=== PATIENT | male | born 1955 | race Caucasian/White ===

== ENCOUNTER 2016-12-07 19:01 | Inpatient (IN) | payer OTHER ==
[~2016-12-07] VITALS: Ht 172.7 cm; Wt 99.2 kg
[~2016-12-07 19:01] MED LIST: ASPI-650 PO; ATOR40TA PO; ATOR40TA78 PO; CLON0.1T PO; FLUC50TA3 PO; LOSA25TA5 PO; MONT10TA6 PO; MONT10TA9 PO; OMEP20TA62 PO; SULF1TAB24 PO; TRAM50TA2 PO
[2016-12-07 19:32] LABS: HEMATOCRIT 43.6 % (39.2-51.8); HEMOGLOBIN 15.2 g/dL (13.7-18.0); WHITE BLOOD COUNT 11.5 x10^3/uL (3.4-10)
[2016-12-07 19:42] LABS: BLOOD UREA NITROGEN 25 mg/dL (7-18)
[2016-12-07 19:48] LABS: IS PT STATUS REG ER OR PRE ER? YES
[2016-12-07] MEDS ORDERED: MAALOX/HYOSCYAMINE/LIDOCAINE 45 ML BTL ONE (19:51)
[2016-12-07] MEDS ORDERED: MAALOX/HYOSCYAMINE/LIDOCAINE 45 ML BTL PO ONE (20:00)
[2016-12-07] MEDS ORDERED: NITROGLYCERIN SINGLE TAB 0.4 MG SL ONE (20:27)
[2016-12-07] MEDS ORDERED: MORPHINE SULFATE 4 MG/ML, 1ML IVPush PRN ×2 (20:30→22:00)
[2016-12-07] MEDS ORDERED: NITROGLYCERIN SINGLE TAB 0.4 MG SL PRN (20:30)
[2016-12-07] MEDS ORDERED: MORPHINE SULFATE 4 MG/ML, 1ML ONE (21:23)
[2016-12-07] MEDS ORDERED: SODIUM CHLORIDE 0.9% 1,000ML IVBOLUS ONE (22:00)
[2016-12-07] MEDS ORDERED: SODIUM CHLORIDE FLUSH 10ML SYR IVF ONE (22:00)
[2016-12-07] MEDS ORDERED: hydrALAzine 20 MG/ML, 1ML IVPush PRN (22:30)
[2016-12-07] MEDS ORDERED: ONDANSETRON 2MG/ML, 2ML IVPush PRN (22:30)
[2016-12-07] MEDS ORDERED: morphine SULFATE 10 MG/ML, 1ML IVPush PRN (22:30)
[2016-12-07] MEDS ORDERED: NITROGLYCERIN 0.4 MG BOTTLE (25 TABS) SL PRN (23:00)
[2016-12-07] MEDS ORDERED: NITROGLYCERIN 0.4 MG/SPRAY SL PRN (23:00)
[2016-12-07 23:33] VITALS: BP 146/87
[2016-12-07] MEDS: NS + 20MEQ KCL 1,000 ML IV SCH (23:55)
[2016-12-07] MEDS: ENOXAPARIN 40 MG/0.4 ML SQ SCH (23:55)
[2016-12-07] MEDS: SODIUM CHLORIDE FLUSH 10ML SYR IVF SCH (23:56)
[2016-12-08 01:36] LABS: IS PT STATUS REG ER OR PRE ER? NO
[2016-12-08 02:00] VITALS: BP 124/78
[2016-12-08 05:42] LABS: IS PT STATUS REG ER OR PRE ER? NO
[2016-12-08 05:46] LABS: ASPARTATE AMINO TRANSFERASE 22 U/L (15-37); BLOOD UREA NITROGEN 23 mg/dL (7-18)
[2016-12-08 06:07] LABS: HEMATOCRIT 40.5 % (39.2-51.8); WHITE BLOOD COUNT 9.1 x10^3/uL (3.4-10)
[2016-12-08] MEDS ORDERED: PNEUMOCOCCAL 23 VACCINE IM-VACC ONE (06:30)
[2016-12-08 08:00] VITALS: BP 138/80
[2016-12-08] MEDS: PANTOPRAZOLE 40 MG IV IVPush SCH (08:17)
[2016-12-08] MEDS: NS + 20MEQ KCL 1,000 ML IV SCH (08:17)
[2016-12-08] MEDS: SODIUM CHLORIDE FLUSH 10ML SYR IVF SCH ×2 (08:18→21:59)
[2016-12-08] MEDS ORDERED: LORazepam 1MG TABLET PO ONE (10:00)
[2016-12-08 14:00] VITALS: BP 151/81
[2016-12-08] MEDS: SODIUM CHLORIDE 0.9% 1,000 ML IV SCH (17:35)
[2016-12-08 20:00] VITALS: BP 149/82
[2016-12-08] MEDS ORDERED: ATORVASTATIN 40 MG TABLET PO SCH (21:00)
[2016-12-08] MEDS: ENOXAPARIN 40 MG/0.4 ML SQ SCH (22:00)
[2016-12-08] MEDS: LOSARTAN 50MG TABLET PO SCH (22:00)
[2016-12-09 02:46] VITALS: BP 148/73
[2016-12-09] MEDS: SODIUM CHLORIDE 0.9% 1,000 ML IV SCH ×2 (05:42→16:14)
[2016-12-09 06:11] LABS: ASPARTATE AMINO TRANSFERASE 44 U/L (15-37); BLOOD UREA NITROGEN 14 mg/dL (7-18)
[2016-12-09] MEDS ORDERED: REGADENOSON 0.4 MG/5 ML SYRINGE ONE (08:32)
[2016-12-09] MEDS: SODIUM CHLORIDE FLUSH 10ML SYR IVF SCH ×2 (08:53→21:01)
[2016-12-09] MEDS: PANTOPRAZOLE 40 MG IV IVPush SCH (08:53)
[2016-12-09 09:00] VITALS: BP 162/98
[2016-12-09 09:25] LABS: ASPARTATE AMINO TRANSFERASE 47 U/L (15-37)
[2016-12-09 15:10] VITALS: BP 147/78
[2016-12-09 20:56] VITALS: BP 165/84
[2016-12-09] MEDS: LOSARTAN 50MG TABLET PO SCH (21:00)
[2016-12-09] MEDS: ENOXAPARIN 40 MG/0.4 ML SQ SCH (21:00)
[2016-12-10 01:57] VITALS: BP 153/90
[2016-12-10] MEDS: SODIUM CHLORIDE 0.9% 1,000 ML IV SCH (06:10)
[2016-12-10 06:56] LABS: ASPARTATE AMINO TRANSFERASE 26 U/L (15-37); BLOOD UREA NITROGEN 12 mg/dL (7-18)
[2016-12-10 08:05] VITALS: BP 142/79
[2016-12-10] MEDS: PANTOPRAZOLE 40 MG IV IVPush SCH (08:56)
[2016-12-10] MEDS: SODIUM CHLORIDE FLUSH 10ML SYR IVF SCH (08:59)
[2016-12-10] MEDS ORDERED: AMLODIPINE 5 MG TABLET PO SCH (09:00)
[2016-12-10] MEDS ORDERED: FENTANYL PF 100 MCG/2ML ONE (12:24)
[2016-12-10] MEDS ORDERED: MIDAZOLAM 1 MG/ML, 5ML ONE (12:24)
[2016-12-10] MEDS ORDERED: TICAGRELOR 90 MG TABLET ONE (12:25)
[2016-12-10] MEDS ORDERED: HEPARIN 1,000 UNITS/ML, 10ML ONE (12:25)
[2016-12-10] MEDS ORDERED: BIVALIRUDIN 250 MG ONE (12:25)
[2016-12-10] MEDS ORDERED: LIDOCAINE 2%, 20ML ONE (12:25)
[2016-12-10] MEDS ORDERED: VERAPAMIL 2.5 MG/ML, 2ML ONE (12:25)
[2016-12-10 14:59] VITALS: BP 161/91
[2016-12-10] MEDS ORDERED: AMLO5TAB2 PO (15:18)
== END 2016-12-10 18:47 | disposition home or self-care (01) | DRG 286 ==
LOC: ED 21:36 → EDIP 21:59 → 5SO 23:26
PROVIDERS: ADMIT Internal Medicine; ATTEND Hospitalist
PROC: 4A023N7 Measurement of Cardiac Sampling and Pressure, Left Heart, Percutaneous Approach (ICD-10-PCS; principal; 2016-12-07)
PROC: B2111ZZ Fluoroscopy of Multiple Coronary Arteries using Low Osmolar Contrast (ICD-10-PCS; 2016-12-07)
PROC: B2151ZZ Fluoroscopy of Left Heart using Low Osmolar Contrast (ICD-10-PCS; 2016-12-07)
DX: I25.10 Atherosclerotic heart disease of native coronary artery without angina pectoris (principal); K85.90 Acute pancreatitis without necrosis or infection, unspecified; I10 Essential (primary) hypertension; E78.00 Pure hypercholesterolemia, unspecified; E78.5 Hyperlipidemia, unspecified; J45.909 Unspecified asthma, uncomplicated; K21.9 Gastro-esophageal reflux disease without esophagitis; K80.20 Calculus of gallbladder without cholecystitis without obstruction; Z87.891 Personal history of nicotine dependence; Z90.49 Acquired absence of other specified parts of digestive tract; Z88.8 Allergy status to other drugs, medicaments and biological substances
CPT/HCPCS: 36415; 71010; 74181; 76700; 78452; 80048; 80053; 80061; 80076; 82040; 83690; 84450; 84460; 84484; 85025; 90732; 93005; 93017; 93458; 96361; 96374; 99156; C1769; C1894; J0583; J1644; J1650; J2250; J2785; J3010; J3480; J3490; A9502; C9113; C9898; J2270; J7030; Q9967

== ENCOUNTER → 2017-01-04 | Outpatient (CLI) | payer OTHER ==
[~2017-01-04] MED LIST changes: +AMLO5TAB2 PO; +LOSA100T6 PO
== END ==
LOC: STAR 08:29
PROVIDERS: ATTEND Podiatrist Foot & Ankle Surgery
DX: Z02.9 Encounter for administrative examinations, unspecified (principal)

== ENCOUNTER 2017-01-16 13:04 | Day surgery (SDC) | payer OTHER ==
[~2017-01-16] VITALS: Ht 172.7 cm; Wt 96.0 kg
[2017-01-16] MEDS ORDERED: LACTATED RINGERS 1,000 ML IV SCH ×2 (13:33→20:00)
[2017-01-16 13:51] VITALS: BP 166/81
[2017-01-16] MEDS ORDERED: BUPIVACAINE/PF 0.5% ONE (14:48)
[2017-01-16] MEDS ORDERED: EPINEPHRINE 1 MG/ML, 1ML ONE (14:48)
[2017-01-16] MEDS ORDERED: LIDOCAINE/PF 1%, 30ML ONE (14:48)
[2017-01-16] MEDS ORDERED: MIDAZOLAM 1 MG/ML, 2ML ONE ×2 (15:24→15:30)
[2017-01-16] MEDS ORDERED: SCOPOLAMINE 1MG PATCH TD ONE ×2 (15:24→15:30)
[2017-01-16] MEDS ORDERED: FENTANYL PF 100 MCG/2ML ONE ×2 (15:24→17:26)
[2017-01-16] MEDS ORDERED: PROPOFOL 50 ML ONE (15:30)
[2017-01-16] MEDS ORDERED: PROPOFOL 10 MG/ML, 20ML ONE (15:30)
[2017-01-16] MEDS ORDERED: KETAMINE 10 MG/ML, 20ML ONE (15:30)
[2017-01-16] MEDS ORDERED: CEFAZOLIN 1,000 MG ONE ×2 (15:35)
[2017-01-16] MEDS ORDERED: DEXAMETHASONE 4 MG/ML, 1ML ONE ×2 (15:36)
[2017-01-16] MEDS ORDERED: ONDANSETRON 2MG/ML, 2ML ONE ×2 (17:03)
[2017-01-16] MEDS ORDERED: KETOROLAC 30 MG/1 ML ONE (17:03)
[2017-01-16] MEDS ORDERED: PROMETHAZINE 25 MG/ML, 1ML IV PRN (18:00)
[2017-01-16] MEDS ORDERED: ALBUTEROL SULFATE 2.5 MG/3 ML NPPB PRN (18:00)
[2017-01-16] MEDS ORDERED: ONDANSETRON 2MG/ML, 2ML IVPush PRN ×2 (18:00→20:00)
[2017-01-16] MEDS ORDERED: LABETALOL 5MG/ML, 20ML IV PRN (18:00)
[2017-01-16] MEDS ORDERED: OXYcodone 5 MG/5 ML ORAL.SOL UDC PO PRN (18:00)
[2017-01-16] MEDS ORDERED: HYDROmorphone 1 MG/ML, 1ML IV PRN (18:00)
[2017-01-16] MEDS ORDERED: ACETAMINOPHEN 325 MG TABLET PO PRN (18:00)
[2017-01-16] MEDS ORDERED: hydrALAzine 20 MG/ML, 1ML IV PRN (18:00)
[2017-01-16] MEDS ORDERED: FENTANYL PF 100 MCG/2ML IV PRN (18:00)
[2017-01-16] MEDS ORDERED: MEPERIDINE/PF 25MG/0.5ML IVPush PRN (18:00)
[2017-01-16] MEDS ORDERED: ACETAMINOPHEN 650 MG/20.3 ML UDC ONE (18:08)
[2017-01-16] MEDS ORDERED: OXYcodone 5 MG/5 ML ORAL.SOL UDC ONE (18:08)
[2017-01-16] MEDS ORDERED: HYDROcodone/APAP 5/325 TABLET PO PRN (20:00)
== END 2017-01-16 23:00 | disposition home or self-care (01) ==
LOC: OUT 13:04 → 4NOR 18:44 → OUT 23:00
PROVIDERS: ATTEND Podiatrist Foot & Ankle Surgery
DX: M20.11 Hallux valgus (acquired), right foot (principal); G57.61 Lesion of plantar nerve, right lower limb; M79.2 Neuralgia and neuritis, unspecified; I10 Essential (primary) hypertension; K31.9 Disease of stomach and duodenum, unspecified; J45.909 Unspecified asthma, uncomplicated; Z88.8 Allergy status to other drugs, medicaments and biological substances
CPT/HCPCS: 28080; 28240; 28296; 88304; C1713; J0171; J0690; J1100; J1885; J2250; J2405; J2704; J3010; J3490; J7120

== ENCOUNTER → 2017-03-06 | Outpatient (CLI) | payer OTHER | END | disposition home or self-care (01) | LOC: CFH 12:28 | PROVIDERS: ATTEND Internal Medicine Cardiovascular Disease | DX: I07.1 Rheumatic tricuspid insufficiency (principal); I10 Essential (primary) hypertension; E78.5 Hyperlipidemia, unspecified | CPT/HCPCS: 93306 ==

== ENCOUNTER → 2020-01-21 | Outpatient (CLI) | payer OTHER ==
[~2020-01-21] MED LIST changes: +AMLO-150 PO; -AMLO5TAB2 PO; -CLON0.1T PO; +CLON0.1T22 PO; +LOSA100T14 PO; -LOSA100T6 PO; +LOSA25TA25 PO; -LOSA25TA5 PO; +MONT10TA11 PO; -MONT10TA9 PO
== END | disposition home or self-care (01) ==
LOC: CVU 09:08
PROVIDERS: ATTEND Internal Medicine Cardiovascular Disease
DX: I08.8 Other rheumatic multiple valve diseases (principal); R94.31 Abnormal electrocardiogram [ECG] [EKG]; I25.10 Atherosclerotic heart disease of native coronary artery without angina pectoris; R07.9 Chest pain, unspecified
CPT/HCPCS: 93306

== ENCOUNTER → 2020-02-05 | Outpatient (CLI) | payer OTHER | END | disposition home or self-care (01) | LOC: CFH 07:33 | PROVIDERS: ATTEND Physician Assistant Medical | DX: R94.31 Abnormal electrocardiogram [ECG] [EKG] (principal); R07.9 Chest pain, unspecified; R06.02 Shortness of breath; I10 Essential (primary) hypertension | CPT/HCPCS: 78452; 93017; A9502 ==